=== PATIENT | male | born 1950 | race African-American/Black ===

== ENCOUNTER 2021-10-07 07:19 | Day surgery (SDC) | payer OTHER ==
[2021-10-03 14:32] VITALS: BMI 25.1
[2021-10-07] MEDS ORDERED: BUPIVACAINE HCL/PF 0.5% (5 MG/ML) 30 ML VIAL IJ ONE (10:01)
[2021-10-07] MEDS ORDERED: MIDAZOLAM HCL 2 MG/2 ML SINGLE DOSE VIAL ONE (10:02)
[2021-10-07] MEDS ORDERED: BUPIVACAINE HCL/PF 0.5% (5MG/ML) 10 ML VIAL ONE (10:02)
[2021-10-07] MEDS ORDERED: KETOROLAC TROMETHAMINE 30 MG/1 ML VIAL ONE (10:44)
[2021-10-07] MEDS ORDERED: DEXAMETHASONE SOD PHOSPHATE 4 MG/1 ML VIAL ONE (10:44)
[2021-10-07] MEDS ORDERED: ONDANSETRON 4 MG/2 ML VIAL ONE (10:44)
[2021-10-07] MEDS ORDERED: ceFAZolin SODIUM 1 GM VIAL ONE (10:44)
[2021-10-07] MEDS ORDERED: PROMETHAZINE HCL 25 MG/1 ML VIAL IVPUSH PRN (12:21)
[2021-10-07] MEDS ORDERED: oxyCODONE HCL 5 MG TABLET PO PRN ×2 (12:21)
[2021-10-07] MEDS ORDERED: ONDANSETRON 4 MG/2 ML VIAL IVPUSH PRN (12:21)
[2021-10-07 13:19] VITALS: TEMP 97.3
[2021-10-07] MEDS ORDERED: oxyCODONE HCL 5 MG TABLET ONE (13:26)
[2021-10-07 13:46] VITALS: BP 138/77; PULSE 86
== END 2021-10-07 14:43 | disposition home or self-care (01) ==
LOC: FASU 07:19
PROVIDERS: ATTEND Orthopaedic Surgery
PROC: 0SBC4ZZ Excision of Right Knee Joint, Percutaneous Endoscopic Approach (ICD-10-PCS; 2021-10-07)
PROC: 0SBC4ZZ Excision of Right Knee Joint, Percutaneous Endoscopic Approach (ICD-10-PCS; 2021-10-07)
PROC: 0QSD04Z Reposition Right Patella with Internal Fixation Device, Open Approach (ICD-10-PCS; principal; 2021-10-07 10:57)
DX: S82.001A Unspecified fracture of right patella, initial encounter for closed fracture (principal); X58.XXXA Exposure to other specified factors, initial encounter; Y93.9 Activity, unspecified; Y92.9 Unspecified place or not applicable
CPT/HCPCS: 94760; C9803-CS; U0003; U0005